=== PATIENT | female | born 1990 | race Caucasian/White ===

== ENCOUNTER 2019-07-25 17:54 | Emergency (ER) | payer MEDICAID ==
[~2019-07-25] VITALS: Ht 157.5 cm; Wt 81.6 kg
--- NOTE | 2019-07-25 17:54 | NUR ---
Patient KACEY JOSEPH, triaged by RN and transferred to the ED lobby to wait for an available bed.
[2019-07-25 18:03] VITALS: BP 151/87
--- NOTE | 2019-07-25 18:07 | NUR ---
PT TAKEN TO LOBBY VIA W/C, VSS, NO SIGNS OF DISTRESS NOTED
--- NOTE | 2019-07-25 20:43 | NUR ---
PT AMBULATED TO BED 04
--- NOTE | 2019-07-25 21:03 | NUR ---
28 Y/O FEMALE BIBA, PRESENTS TO ED WITH CHIEF COMPLAINT OF ABDOMINAL PAIN 06/29. PT STATES BEING AT THE MALL AND HAVING ABDOMINAL PAIN; ALSO STATES FEELING DIZZY AND LIGHT HEADED; STATES LOSING LOC BUT UNABLE TO VERIFY FOR HOW LONG. DENIES ANY HEAD TRAUMA. PT STATES BEING BUT UNABLE TO PROVIDE GESTATIONAL TIME FRAME. PT DENIES ANY N/V. GAIT IS UNSTEADY DUE TO DIZZINESS. PT STABLE. ERMD AWARE. WILL CONTINUE TO MONITOR.
[2019-07-25 22:37] VITALS: BP 132/89
--- NOTE | 2019-07-25 22:37 | NUR ---
DISCHARGE PAPERS GIVEN TO PT. PT STATES RELIEF AT THIS TIME. VSS. RX OF IBUPROFEN GIVEN. SIDE EFFECTS EXLPAINED. PROVIDED WITH BUS PASS. INSTRUCTED TO F/U WITH PCP AND WHEN TO RETURN TO ER. PT VERBALLIZED UNDERSTANDING OF DC INSTRUCITONS. ALL QEUSTIONS ANSWERED.
== END 2019-07-25 22:37 | disposition home or self-care (01) ==
LOC: MED 17:54
DX: M54.5 Low back pain (principal); Z90.49 Acquired absence of other specified parts of digestive tract
CPT/HCPCS: 81002; 81025; 99282